=== PATIENT | female | born 1970 | race Caucasian/White ===

== ENCOUNTER 2018-07-19 15:52 | Observation (INO) ==
[2018-07-19] MEDS ORDERED: NS 1,000 ML IV PRN (16:06)
[2018-07-19 16:17] LABS: BASO# 0.04 X1000 (0.0-0.2); BASO% 0.4 % (0.0-0.8); EOS# 0.12 X1000 (0.0-0.7); EOS% 1.2 % (0.0-10.0); HEMATOCRIT 44.4 % (37.0-47.0); HEMOGLOBIN 15.5 g/dL (12.0-16.0); IMM GRAN# 0.03 X1000 (0.0-0.04); IMM GRAN% 0.3 % (0.0-0.5); LYMPH# 1.66 X1000 (1.2-3.4); MCH 30.6 PG (27-31); MCHC 34.9 g/dL (33-37); MCV 87.7 FL (81-99); MONO# 1.22 X1000 (0.11-0.59); MONO% 11.8 % (1.7-9.3); MPV 11.3 FL (7.4-10.4); NEUT# 7.29 X1000 (1.4-6.5); NEUT% 70.3 % (42.2-75.2); PLT 200 X1000 (130-400); RBC 5.06 XMIL (4.2-5.4); WBC 10.36 X1000 (4.8-10.8)
[2018-07-19 16:30] LABS: INR 0.96; PROTIME 13.3 Seconds (11.0-16.0)
[2018-07-19 16:31] LABS: PTT 28.9 Seconds (22.3-41.8)
--- NOTE | 2018-07-19 16:33 | Diag Imaging Result Doc PS360 ---
EXAM: CT HEAD W/O CONTRAST HISTORY: poss CVA TECHNIQUE: Emergency CT head without contrast COMPARISON: 10/27/2018 FINDINGS: No parenchymal hemorrhage. No epidural or subdural hematoma. No subarachnoid hemorrhage. 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 No mass identified on this noncontrasted exam. No hydrocephalus. No sinus opacification. Aneurysm clip is unchanged. IMPRESSION: 1.No hemorrhage 2.Old right infarct This exam was performed using automated exposure control, adjustment of mA or kV according to patient size, and/or use of iterative reconstruction technique. Electronically signed by Pal Hernandez 07/19/2018 4:31 PM
--- NOTE | 2018-07-19 16:36 | Diag Imaging Result Doc PS360 ---
EXAM: CHEST-PORTABLE HISTORY: poss CVA TECHNIQUE: Portable chest single view COMPARISON: 10/27/2014 FINDINGS: The lungs are well expanded. The heart is not enlarged. The vessels are not distended. There are no infiltrates. No effusion identified. IMPRESSION: Negative exam. Electronically signed by Pal Hernandez 07/19/2018 4:34 PM
[2018-07-19 16:47] LABS: AGAP 14; ALBUMIN 4.4 g/dL (3.5-5.0); ALKALINE PHOSPHATASE 84 U/L (32-104); BUN 12 mg/dL (8-22); CALCIUM 9.1 mg/dL (8.8-10.2); CHLORIDE 104 mmol/L (98-107); COSMO 281; CREATININE 0.8 mg/dL (0.5-0.9); ESTIMATED GFR > 60; GLUCOSE 100 mg/dL (70-104); GOT 18 U/L (10-30); GPT 10 U/L (10-36); POTASSIUM 4.2 mmol/L (3.5-5.1); SODIUM 141 mmol/L (136-145); TCO2 23 mmol/L (25-35); TOTAL PROTEIN 7.3 g/dL (6.3-8.3)
[2018-07-19 16:54] LABS: URINE SOURCE CLEAN CATCH
[2018-07-19 17:04] LABS: BILIRUBIN URINE NEGATIVE (NEGATIVE); BLOOD URINE NEGATIVE (NEGATIVE); CLARITY CLEAR (CLEAR); COLOR YELLOW; GLUCOSE URINE NEGATIVE (NEGATIVE); KETONE URINE NEGATIVE (NEGATIVE); LEUKOCYTES URINE 2+ (NEGATIVE); NITRITE URINE NEGATIVE (NEGATIVE); PH URINE 6.5; PROTEIN URINE TRACE mg/dL (NEGATIVE); SP GRAVITY URINE 1.005; UROBILINOGEN URINE NORMAL
[2018-07-19 17:15] LABS: URINE BACTERIA 1+ /HFP; URINE EPITHELIAL CELLS >10 /HPF (<10)
[2018-07-19 17:16] LABS: URINE CAST NONE SEEN /LPF; URINE CRYSTAL NONE SEEN /HPF; URINE YEAST NONE SEEN /HPF
--- NOTE | 2018-07-19 18:09 | PROVIDER DOCUMENTATION ---
This chart was entered by Nancy Mcleod Scribe, acting as scribe for Romeo Grant MD. HPI-Neurological Disorder - General Chief Complaint: Stroke-Like Symptoms Stated Complaint: STROKE LIKE SX Time Seen by Provider: 07/19/18 16:06 Source: patient, family (daughter) Allergies/Adverse Reactions: Patient Allergies Allergy/AdvReac Type Severity Reaction Status Date / Time No Known Allergies Allergy Verified 10/27/14 01:40 Home Medications: Home Medication List Medication Instructions Recorded Confirmed Last Taken Type Hydrocodone/APAP 10 mg/325 mg 1 tab PO BID 10/16/13 10/27/14 10/26/14 06:30 History [[place]-10] Methadone 10 mg PO BID 10/16/13 10/27/14 10/26/14 19:00 History Aspirin 325 mg PO DAILY #30 tablet 10/28/14 Unknown Rx Ciprofloxacin HCl [Cipro] 500 mg PO BID #16 tablet 10/28/14 Unknown Rx Metronidazole [Flagyl] 500 mg PO TID #24 tablet 10/28/14 Unknown Rx SIMVAstatin [Zocor] 40 mg PO QHS #30 tablet 10/28/14 Unknown Rx - History of Present Illness-Neuro Nature of Presenting Problem: 48yof presents to ED cc feeling of unwell, absent minded, decreased appetite, intermittent abdominal pain for 4 days and non stop headache with light sensitivity/nausea for 48hrs. Pt daughter is at bedside and reports pt has had a brain aneurysm, 4yrs ago, and 2 strokes after that. Pt denies chest pain, irregular heart rate, cough or SOB. Pt has hx of CVA. Headache Location: reports: global Severity: reports: mild Onset/Duration: reports: 4 days ago Timing: reports: still present Context: reports: none Character of Altered Mental Status: reports: trouble concentrating Any recent trauma/injury?: reports: none Character of Deficits: reports: new weakness Associated Symptoms: reports: headache, nausea, weakness. denies: chest pain, vomiting Similar Symptoms Previously?: Yes Recently seen or treated by another doctor?: No Review of Systems - Adult - REVIEW OF SYSTEMS - ADULT Constitutional: reports: see kamryn MYERS. denies: chills, fever Eyes: reports: no symptoms reported Ears, Nose, Mouth & Throat: reports: no symptoms reported Cardiovascular: reports: see HPI. denies: chest pain, irregular heart rate Respiratory: reports: see HPI. denies: cough, shortness of breath Gastrointestinal: reports: see HPI, abdominal pain, nausea, poor appetite. denies: diarrhea, vomiting Genitourinary: reports: no symptoms reported Musculoskeletal: reports: no symptoms reported Integumentary: reports: no symptoms reported Neurological: reports: see HPI, headache/migraines, other (unsteady). denies: syncope Psychiatric: reports: no symptoms reported Endocrine: reports: no symptoms reported Hematologic/Lymphatic: reports: no symptoms reported Allergic/Immunologic: reports: no symptoms reported All Other Systems: Reviewed and Negative Past History - Adult - PAST MEDICAL HISTORY-ADULT Review of Records: reports: Nursing Assessment Review, Medications Reviewed, Social history reviewed & non-contributory. Major Childhood Illnesses: reports: denies history Cardiovascular: reports: denies history Respiratory: reports: denies history Gastrointestinal: reports: denies history Obstetrical/Gynecological: reports: denies history Genitourinary: reports: denies history Musculoskeletal: reports: chronic pain (neck and back pain) Neurological: reports: CVA Psychiatric: reports: bipolar Endocrine/Immune: reports: denies history Other Conditions: reports: denies history - PRIOR SURGERIES/PROCEDURES Surgical/Procedure History: reports: BTL, - IMMUNIZATION STATUS Childhood Immunizations: See Nurse Assessment Flu Vaccine: See Nurse Assessment - FAMILY HISTORY Family History: reviewed, not pertinent - SOCIAL HISTORY Smoking: cigarettes, greater than 1 pack/day Provider spent 3-5 mins advising pt. on dangers of tobacco.: Discussed manners to quit use, and f/u contacts for add'l counseling. Physical Exam- Neurological - Physical Exam-Neuro Initial Vital Signs Reviewed: Yes General Appearance: appears well, alert. negative: anxious, combative Eye Exam: bilateral eye: normal inspection, PERRL HENMT: moist mucous membranes. negative: angioedema Head Injury: no evidence of injury. negative: active bleeding, Vogt's Sign, contusions, ecchymosis Respiratory: chest non-tender, lungs clear, normal breath sounds, no pleuratic chest pain, no respiratory distress, no accessory muscle use. negative: crackles, rales, rhonchi Cardiovascular: normal peripheral pulses, regular rate, rhythm, no edema, no gallop, no JVD, no murmur. 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 negative: facial droop Motor/Sensory: no sensory deficit, no pronator drift Integumentary: normal color, warm/dry. negative: diaphoresis, jaundice Progress - PLAN OF CARE/RESULTS Progress/Plan/Lab Results: Vital Signs - 8 hr 07/19/18 15:56 07/19/18 16:28 07/19/18 17:05 Temperature 98 F Pulse Rate 81 69 81 Respiratory Rate 16 17 16 Blood Pressure 172/116 145/92 O2 Sat by Pulse Oximetry 97 97 97 07/19/18 17:35 07/19/18 18:05 Temperature Pulse Rate 66 64 Respiratory Rate 18 17 Blood Pressure 137/78 126/78 O2 Sat by Pulse Oximetry 99 97 Laboratory Results - last 24 hr 07/19/18 07/19/18 07/19/18 16:00 16:00 16:00 WBC 10.36 RBC 5.06 Hgb 15.5 Hct 44.4 MCV 87.7 MCH 30.6 MCHC 34.9 RDW Std Deviation 14.0 Plt Count 200 MPV 11.3 H Immature Gran % (Auto) 0.3 Neut % (Auto) 70.3 Lymph % (Auto) 16.0 L [place] % (Auto) 11.8 H Eos % (Auto) 1.2 Baso % (Auto) 0.4 Immature Gran # (Auto) 0.03 Neut # (Auto) 7.29 H Lymph # (Auto) 1.66 [place] # (Auto) 1.22 H Eos # (Auto) 0.12 Baso # (Auto) 0.04 PT INR PTT (Actin FS) Sodium 141 Potassium 4.2 Chloride 104 Carbon Dioxide 23 L Anion Gap 14 BUN 12 Creatinine 0.8 Estimated GFR/1.73 m2 > 60 BUN/Creatinine Ratio 15 Glucose 100 POC Glucose Calculated Osmolality 281 Calcium 9.1 Total Bilirubin 0.40 AST 18 ALT 10 Alkaline Phosphatase 84 Troponin T < 0.010 Total Protein 7.3 Albumin 4.4 Globulin 3.0 Albumin/Globulin Ratio 2.0 Urine Source Urine Color Urine Clarity Urine pH Ur Specific [place] Urine Protein Urine Ketones Urine Blood Urine Nitrite Urine Bilirubin Urine Urobilinogen Urine Microscopic RBC Urine WBC Urine Microscopic WBC Ur Epithelial Cells Urine Crystals Urine Bacteria Urine Casts Urine Yeast Urine Glucose 0527/19 05/27/19 05/27/19 16:00 16:37 16:42 WBC RBC Hgb Hct MCV MCH MCHC RDW Std Deviation Plt Count MPV Immature Gran % (Auto) Neut % (Auto) Lymph % (Auto) [place] % (Auto) Eos % (Auto) Baso % (Auto) Immature Gran # (Auto) Neut # (Auto) Lymph # (Auto) [place] # (Auto) Eos # (Auto) Baso # (Auto) PT 13.3 INR 0.96 PTT (Actin FS) 28.9 Sodium Potassium Chloride Carbon Dioxide Anion Gap BUN Creatinine Estimated GFR/1.73 m2 BUN/Creatinine Ratio Glucose POC Glucose 95 Calculated Osmolality Calcium Total Bilirubin AST ALT Alkaline Phosphatase Troponin T Total Protein Albumin Globulin Albumin/Globulin Ratio Urine Source CLEAN CATCH Urine Color YELLOW Urine Clarity CLEAR Urine pH 6.5 Ur Specific [place] 1.005 Urine Protein TRACE A Urine Ketones NEGATIVE Urine Blood NEGATIVE Urine Nitrite NEGATIVE Urine Bilirubin NEGATIVE Urine Urobilinogen NORMAL Urine Microscopic RBC Not Reportable Urine WBC 2+ A Urine Microscopic WBC 10-20 A Ur Epithelial Cells >10 A Urine Crystals NONE SEEN Urine Bacteria 1+ Urine Casts NONE SEEN Urine Yeast NONE SEEN Urine Glucose NEGATIVE Orders Category Date Time Status Cardiac Monitoring DIRECTED Care 07/19/18 16:06 Active Finger Stick Blood Sugar (ED) DIRECTED Care 07/19/18 16:06 Active Misc. NRSG Communication Order DIRECTED Care 07/19/18 16:06 Active Oxygen Therapy- ED Nursing DIRECTED Care 07/19/18 16:06 Active Saline Loc NOW Care 07/19/18 16:06 Active CHEST-PORTABLE [RAD] Stat Exams 07/19/18 16:[address] HEAD W/O CONTRAST [CT] Stat Exams 07/19/18 16:06 Completed CBC WITH ELECTRONIC DIFF [HEME] Stat Lab 07/19/18 16:00 Completed COMPREHENSIVE METABOLIC PANEL [CHEM] Stat Lab 07/19/18 16:00 Completed PROTIME WITH INR [COAG] Stat Lab 07/19/18 16:00 Completed PTT [COAG] Stat Lab 07/19/18 16:00 Completed TROPONIN T Stat Lab 07/19/18 16:[address] W/POSS RFLX CULT [URINALYSIS] Stat Lab 07/19/18 16:42 Completed URINE CULTURE [RM] Routine Lab 07/19/18 17:16 Ordered 0.9% Sodium Chloride Inj [Ns] 1,000 ml Med 07/19/18 16:06 Active IV 100 mls/hr EKG [EKG] Stat Ther 07/19/18 16:06 Ordered Result Diagrams: 07/19/18 16:00 07/19/18 16:00 - XRAY 1 XRAY: Bilateral XRAY Study: Chest Impression: See EMR Report (IMPRESSION: Negative exam. Electronically signed by Pal Hernandez 07/19/2018 4:34 PM) - CT/MRI 1 CT Study: Head Impression: See EMR Report (IMPRESSION: 1.No hemorrhage 2.Old right infarct This exam was performed using automated exposure control, adjustment of mA or kV according to patient size, and/or use of iterative reconstruction technique. Electronically signed by Pal Hernandez 07/19/2018 4:31 PM) - CONSULTS/PCP/HOSPITALIST Notification #1 *Consult/PCP/Hospitalist*: [place] Time Discussed: 17:53 Consult Disposition: Admit Departure - Departure Date of Disposition Decision: 07/19/18 Time of Disposition Decision: 17:35 DIAGNOSIS: Left-sided muscle weakness Disposition: ADMITTED INPATIENT 09 Certified Medical Emergency: Emergent Condition: Good Referrals and Follow-Ups: None,PCP [Primary Care Provider] - - Critical Care Note This patient required my direct & personal management of CC.: No Attestation - Physician/ DANN Attestation Patient care was provided by Advanced Practice Provider:: No The physician spent face to face time with patient:: Yes Advanced Practice Provider documentation review:: Supervising physician onsite and consulted in the evaluation and care of this patient. The physician did have a face to face encounter with the patient. - NIH Stroke Scale NIH Type: Initial Evaluation Level of Consciousness: 0-Alert LOC Questions (ask month and age): 0-Answers Both Correctly LOC Commands (ask to open & close eyes;make a fist, let go): 0-Obeys Both Correctly Best Gaze (horizontal eye movement): 0-Normal Visual (use finger movement, counting or visual threat): 0-No Visual Loss Facial Palsy (show teeth or raise eyebrows & close eyes tght: 0-Symmetrical Movement Motor Function-left arm: 0-Normal Motor Function-right arm: 0-Normal Motor Function-left le-Normal Motor Function-right le-Normal Limb Ataxia(pxchsw-dctk-zvnbtl, or heel to smith): 0-No Ataxia Sensory(pin prick to face,arms,trunk,legs-compare side/side): 0-No Ataxia Best Language(name item/read sentence.Ex-Down to Earth): 0-No Aphasia Dysarthria(Pt read words or say words Ex.Mama,Tip-Top,Thanks: 0-Normal Articulation Extinction and Inattention: 0-Normal Modified Gove Score Criteria: 1-no significant disability despite symptoms Stroke tPA Guidelines - Inclusion Criteria for IV tPA 18 years old or older: Yes Ischemic stroke with measurable deficit: No Onset <3 hours ago *OR* 3-4.5 hours ago: No This chart was documented by the indicated scribe, (Nancy Mcleod, Scribe) and accurately reflects the services I performed and decisions made by me, Romeo Grant MD, as attested by the provider's signature.
[2018-07-19] MEDS ORDERED: ZOFRAN IV PRN (18:24)
[2018-07-19] MEDS ORDERED: TYLENOL PO PRN (18:24)
--- NOTE | 2018-07-19 18:40 | Diag Imaging Result Doc PS360 ---
EXAM: ABDOMEN FLAT/UPRIGHT HISTORY: abd pain, nausea TECHNIQUE: Flat and upright, two views COMPARISON: None. FINDINGS: No free air beneath the diaphragm. No bowel obstruction. There is debris within the stomach. No organomegaly. No foreign body. There is a left pelvic phlebolith. IMPRESSION: No abnormality identified. Electronically signed by Pal Hernandez 07/19/2018 6:38 PM
[2018-07-19] MEDS ORDERED: NICODERM PATCH TD SCH (21:45)
--- NOTE | 2018-07-19 21:47 | HISTORY AND PHYSICAL ---
CHIEF COMPLAINT: Headache with photophobia. HISTORY OF PRESENT ILLNESS: Patient is a 48-year-old female who has a known history of brain aneurysm status post rupture. She had surgical procedure to fix the aneurysm. She has a known history of hypertension but states that she is not checking her blood pressures at home and in fact does not remember the last time she checked it. Started complaining of headaches sharp with increased intensity, felt as though she had a photophobia with it. Notes that she has had intermittent headaches since 2014, but this one was not normal and was more severe. Also did not subside as quickly as usual. Her blood pressures were elevated 176/116. Currently they are much improved at 130 to 150 systolic and 80 to 90 diastolic. He notes that her headaches are improved and back to her normal. PAST MEDICAL HISTORY: Subarachnoid hemorrhage in 2013, status post falling, subsequent right hemispheric infarct with resultant and residual left-sided weakness, chronic pain, currently on pain medication. ALLERGIES: No known drug allergies. MEDICATIONS: [place] 10 b.i.d., aspirin, Zocor, but I am not sure that she has filled this any time recently. She denies being on blood pressure medications currently. REVIEW OF SYSTEMS: The patient notes that she has had a severe headache, much more than usual, felt more weak due to the pain, although currently notes the weakness is improved. Denies any current chest pain, palpitations. Denies any fevers, chills. Denies dysuria, frequency, urgency, hesitancy, polyuria or polydipsia. Denies any skin rashes or weight loss. The patient has left- sided weakness but is felt as though it was more severe today during the headache. Thinks that it may be back to normal at this point. Denies any blurry vision. States her headache was much more severe than usual. Notes that during the headaches she had a poor appetite, but since arriving to the ER and the headache is improved, she was able to eat [employer]. PAST MEDICAL HISTORY: Hypertension, chronic neck and back pain, history of CVA with left-sided weakness after her stroke. FAMILY HISTORY: Noncontributory. SOCIAL HISTORY: She lives at home. She does not work due to her stroke history and left-sided weakness. He unfortunately continues to smoke approximately a pack a day. She has not really had any followup due to lack of insurance. PHYSICAL EXAMINATION: VITAL SIGNS: Reviewed. He is afebrile, pulse 80s, respiratory 16, BP initially 172/116, currently 126/78 to 152/84. HEENT: Normocephalic, atraumatic. GENERAL: She is in no current respiratory distress. Very pleasant to talk with sitting up on the exam bed. She is awake, alert, oriented x3. NECK: Supple. No JVD. CARDIOVASCULAR: Regular rate. No murmurs. CHEST: Clear. Nonlabored. ABDOMEN: Soft. Nondistended. EXTREMITIES: Moves her right upper and lower extremity without incident. Left side is a 2/5 weakness, but she has to assist moving her left arm with her right arm. NEUROLOGIC: She is awake, alert, oriented. She has left-sided weakness as noted. SKIN: Warm, dry. No rashes. LABORATORY DATA: CBC normal. Sodium and potassium were normal. IMAGING: CT of the head with no acute hemorrhage. She has an old infarct. ASSESSMENT: 1. Acute severe headache in a patient with a known history of stroke and hemorrhage. CT is thankfully negative. 2. Malignant hypertension. Blood pressure markedly elevated on admission. Currently, it has improved. 3. Hypertension, although patient does not appear to be on blood pressure medications at home. 4. History of cerebrovascular accident. She does not appear to be on cholesterol medications at home. Has a history of bleeding therefore she is no longer on anticoagulant. 5. Chronic tobacco abuse. Again discussed with patient the perils of smoking and reasons to stop. PLAN: We will admit patient to the hospital. We will observe her and repeat CT if symptoms worsen. She cannot have an MRI due to her previous aneurysmal bleeding and coiling procedure. We will follow her blood pressures, which currently are much better controlled. We will use symptomatic medication as needed. Currently expect that she will need to be discharged home on blood pressure medications. Discussed with her getting a blood pressure cuff and taking her blood pressures at home. Discussed with her that a blood pressure cuff would be less than the cost of cigarettes for a month and therefore should be affordable if she stopped smoking. cc: Mehul Appiah MD
[2018-07-20] MEDS: PRILOSEC PO SCH ×2 (06:10→06:13)
[2018-07-20 07:18] LABS: AGAP 9; BUN 14 mg/dL (8-22); CALCIUM 8.1 mg/dL (8.8-10.2); CHLORIDE 106 mmol/L (98-107); COSMO 281; CREATININE 0.8 mg/dL (0.5-0.9); ESTIMATED GFR > 60; GLUCOSE 91 mg/dL (70-104); POTASSIUM 3.9 mmol/L (3.5-5.1); SODIUM 141 mmol/L (136-145); TCO2 27 mmol/L (25-35)
[2018-07-20 07:45] VITALS: BP 147/71
[2018-07-20] MEDS ORDERED: NICODERM PATCH TD SCH (09:00)
--- NOTE | 2018-07-20 16:13 | DISCHARGE SUMMARY ---
ADMISSION DATE: 07/19/2018 DISCHARGE DATE: 07/20/2018 DIAGNOSES: 1. Headache in the known history of stroke and hemorrhage with a negative CT. Headache has since resolved. 2. Malignant hypertension, improved. 3. History of hypertension on no home medications. 4. History of prior to cerebrovascular accident A x2 after subarachnoid hemorrhage. 5. Chronic tobacco abuse. 6. Noncompliance with medications and followup. DIAGNOSTICS: CT chest x-ray revealed negative exam, lungs are well expanded. Heart is not enlarged. Vessels are not distended. There are no infiltrates, no effusions. CT of the head revealed no hemorrhage and old right infarct aneurysm clip is unchanged. HOSPITAL COURSE: Ms Coello presented to the emergency room complaining of a headache she stated along with photophobia, which has been intermittent since 2013 when she had a subarachnoid hemorrhage. She stated that this headache was more severe than normal therefore prompting her evaluation. CT scan revealed no acute hemorrhage with stable infarcts. We are unable to perform an MRI as she did undergo aneurysmal bleeding with coiling procedure. Initial blood pressures were 170s over 1 teens. Blood pressures have since decreased and have remained in the 110 to 140/70 range. Prior to being admitted to ICU she stated that her headache had resolved. While in the emergency room she was noted to leave the emergency room quite frequently to go outside and smoke and return. This morning upon the RNs assessment, the patient stated that she wanted to go home to smoke. She refused a nicotine patch and she signed out against medical advice and left with her with a family member. Discharge vital signs 147/71 blood pressure, with a heart rate of 79, respirations 18, temperature is 98.1 degrees oral with room air saturations 97%. The patient and her daughter did state that she has had no follow-up since the coiling procedure. They stated that "a rich family in [place] paid for all of the surgery from their foundation, but they did not pay for any outpatient follow-up." Ms Coello is noted to have had 2 inpatient visits May 2014 and October 2014, both for CVA. She states she has had no physician follow-up at this time. We did discuss the importance of followup, the importance of taking medications and controlling her blood pressure to which she stated "I know I just don't have the time." I did give the patient the number to [facility]. I gave the daughter the phone number to [facility] in [place], as the patient does live in [place], encouraged them to schedule an appointment for followup while I was evaluating the patient in the emergency room prior to admit. Hopefully they will follow through. Dictated by RASHAWN Urbina for Mehul Appiah MD cc: RASHAWN Urbina MD
--- NOTE | 2018-07-20 20:31 | PROGRESS NOTE ---
DATE: 07/20/2018 SUBJECTIVE: Patient notes she is still having a mild headache. Denies any fevers or chills. PHYSICAL EXAMINATION: Vital Signs: Temperature 97.7, pulse 69, respiratory 18, BP 117/71. General: Patient is awake, alert. She is in no distress. She is lying in the bed. Does not appear to have any neurologic changes currently. HEENT: Normocephalic. Neck: Supple. Cardiovascular: Regular rate. Chest: Clear. Abdomen: Soft. ASSESSMENT: 1. Acute severe headache. Seems to have improved. CT was negative. 2. Malignant hypertension. Blood pressures have improved. 3. History of cerebrovascular accident. 4. Chronic tobacco abuse. PLAN: We will check a carotid ultrasound to make sure that this is normal. We will have patient ambulate to make sure that her blood pressures are stable and hopefully will send home later this afternoon if she continues to improve and her blood pressures are stable. cc: Mehul Appiah MD
--- NOTE | 2018-07-21 00:38 | DISCHARGE SUMMARY ---
ADMISSION DATE: 07/19/2018 DISCHARGE DATE: 07/20/2018 DISCHARGE DIAGNOSES: 1. The patient left against medical advice stating that she was going to smoke. 2. Hypertension, although blood pressure on discharge is 117/71. 3. Severe headache. 4. Medical noncompliance. CONSULTATIONS: None. PROCEDURES: None. BRIEF HOSPITAL COURSE: The patient is a 48-year-old female who presented to the hospital with marked elevated blood pressure and headache. She thankfully had an uneventful hospital course. On discharge she is awake, alert, she is in no distress. We did discuss with the patient in the hospital that she needs to stop smoking. She needs to consider getting a blood pressure cuff at home. DISPOSITION: Unfortunately no further disposition was able to be obtained as shortly after I had seen the patient in the morning she decided that she was going to leave and was not staying in the hospital and she was going to smoke. cc: Mehul Appiah MD
== END 2018-07-20 08:30 | disposition left against medical advice (07) ==
LOC: P.MEDSURG 15:52 → P.ED 15:52
PROVIDERS: ATTEND Family Medicine
CPT/HCPCS: 70450; 71010; 71045; 74019; 74020; 80048; 80053; 81001; 82948; 84484; 85025; 85610; 85730; 87088; 93005; A9270; J7030; XXXXX